=== PATIENT | female | born 1995 | race Caucasian/White ===

== ENCOUNTER 2021-11-29 15:26 | Outpatient (CLI) | payer OTHER | END 2021-11-29 15:33 | disposition home or self-care (01) | LOC: LAB 15:26 | PROVIDERS: ATTEND Preventive Medicine Occupational Medicine | DX: U07.1 COVID-19 (principal) ==

== ENCOUNTER 2021-12-13 08:00 | Outpatient (CLI) | payer OTHER | END 2021-12-13 08:05 | disposition home or self-care (01) | LOC: PPH VACUNA 08:00 | PROVIDERS: ATTEND Emergency Medicine Pediatric Emergency Medicine | DX: Z23 Encounter for immunization (principal) ==

== ENCOUNTER 2022-07-07 10:39 | Emergency (ER) | payer OTHER ==
[~2022-07-07] VITALS: Ht 167.6 cm; Wt 95.3 kg
== END 2022-07-07 14:22 | disposition home or self-care (01) ==
LOC: ER 10:39
DX: B34.9 Viral infection, unspecified (principal); Z20.822 Contact with and (suspected) exposure to COVID-19

== ENCOUNTER 2023-12-19 20:33 | Emergency (ER) | payer OTHER ==
[~2023-12-19] VITALS: Ht 167.6 cm; Wt 96.6 kg
[2023-12-19] MEDS ORDERED: ELVITEG/COB/EMTRI/TENOFO DISOP 1 UDTAB TABLET PO ONE (20:45)
== END 2023-12-19 20:46 | disposition home or self-care (01) ==
LOC: ER 20:33
DX: R53.81 Other malaise (principal); R78.81 Bacteremia

== ENCOUNTER 2024-10-15 13:36 | Outpatient (CLI) | payer OTHER | END 2024-10-15 13:43 | disposition home or self-care (01) | LOC: MRI 13:36 | PROVIDERS: ATTEND Internal Medicine | DX: G93.0 Cerebral cysts (principal); R51.9 Headache, unspecified | CPT/HCPCS: 70551 ==

== ENCOUNTER → 2024-11-17 11:19 | Outpatient (CLI) | payer OTHER ==
[2024-11-17 10:33] LABS: BASO % 0.7 % (0.1-1.2); EOS # 0.04 (0.04-0.54); EOS % 0.6 % (0.7-7.0); LYMPH # 1.78 (1.18-3.74); LYMPH % 24.6 % (19.3-53.1); MEAN PLATELET VOLUME 10.90 fl (9.4-12.4); MONO # 0.50 (0.24-0.82); MONO % 6.9 % (4.7-12.5); NEUT # 4.86 (1.56-6.13); NEUT % 66.9 % (34.0-71.1); RED CELL DISTRIBUTION WIDTH 14.0 % (11.6-14.4)
[2024-11-17 11:01] LABS: GAMMA GLUTAMIL TRANSFERASE 10.0 U/L (5-55)
[2024-11-17 11:05] LABS: ALT/SGPT 12.0 U/L (12-78); AST/SGOT 7.0 U/L (15-37); BILIRUBIN TOTAL 1.14 mg/dL (0.3-1.2); BUN CREA RATIO 20.0 (7.0-25.0); CHOL HDL RATIO 2.6 (0-5.0); CREATININE SERUM 0.7 mg/dL (0.55-1.02); FREE TRIODOTIRONINE 2.27 pg/ml (2.18-3.98); GFR 99.64; GLOBULINA 3.5 G/DL (2.4-3.5); GLUCOSE FASTING 73.0 mg/dL (65-100); HDL 46.0 mg/dl (40-60); LDL 58.0 mg/dl (0-130); OSMOLALITY SERUM 280.0 MOSM/KG (275-295); T4 TOTAL 7.54 UG/DL (4.8-13.9); TSH 1.09 uIU/mL (0.358-3.74); VLDL 17.0 (0-39)
[2024-11-18 09:11] LABS: INSULIN LEVELS 13.8 uIU/mL (2.6-24.9)
[2024-11-18 16:30] LABS: URINE APPEARANCE Clear; URINE BILIRRUBIN Negative (NEGATIVE); URINE BLOOD Large; URINE COLOR Yellow; URINE GLUCOSE Negative (NEGATIVE); URINE KETONE Trace (NEGATIVE); URINE LEUKOCYTE Negative; URINE NITRATE Negative; URINE PROTEIN Negative (NEGATIVE); URINE UROBILINOGEN 1.0 E.U./dl
[2024-11-18 16:31] LABS: URINE BACTERIA 22.7 uL (0.0-1933); URINE EPITHELIAL CELLS 8.5 uL (0.0-38.8); URINE RBC 156.1 uL (0.0-20.8); URINE WBC 2.4 uL (0.0-23.2)
[2024-11-18 16:34] LABS: URINE CAST 0.14 uL (0.0-1.40)
== END | disposition home or self-care (01) ==
LOC: LAB 11-09 16:52
PROVIDERS: ATTEND Internal Medicine
DX: E55.9 Vitamin D deficiency, unspecified (principal); Z00.00 Encounter for general adult medical examination without abnormal findings; Z13.1 Encounter for screening for diabetes mellitus; Z13.220 Encounter for screening for lipoid disorders; Z13.29 Encounter for screening for other suspected endocrine disorder; N39.0 Urinary tract infection, site not specified; R74.8 Abnormal levels of other serum enzymes; R10.13 Epigastric pain

== ENCOUNTER 2024-11-23 13:40 | Emergency (ER) | payer OTHER ==
[~2024-11-23] VITALS: Ht 167.6 cm; Wt 90.3 kg
[2024-11-23 14:28] LABS: BASO % 0.6 % (0.1-1.2); EOS # 0.03 (0.04-0.54); EOS % 0.3 % (0.7-7.0); LYMPH # 1.74 (1.18-3.74); LYMPH % 18.6 % (19.3-53.1); MEAN PLATELET VOLUME 10.60 fl (9.4-12.4); MONO # 0.81 (0.24-0.82); MONO % 8.6 % (4.7-12.5); NEUT # 6.73 (1.56-6.13); NEUT % 71.8 % (34.0-71.1); RED CELL DISTRIBUTION WIDTH 14.0 % (11.6-14.4)
[2024-11-23] MEDS ORDERED: CETIRIZINE HCL 5MG/5ML BLIST.PACK PO ONE (14:39)
[2024-11-23] MEDS ORDERED: ACETAMINOPHEN 500 MG GEL..CAP PO ONE (14:40)
[2024-11-23 14:42] LABS: COVID-19 AG NEGATIVE (NEGATIVE)
[2024-11-23] MEDS ORDERED: CETIRIZINE HCL 5 MG/5 ML ML PO ONE (14:45)
[2024-11-23] MEDS ORDERED: ZYRTEC10 MG PO (14:53)
[2024-11-23] MEDS ORDERED: XOPENEX CO1.25 MG/0. IH (14:53)
[2024-11-23] MEDS ORDERED: TUSSIN DM LIQU118 ML PO (14:53)
[2024-11-23] MEDS ORDERED: ZITHROMAX500 MG PO (14:53)
[2024-11-23] MEDS ORDERED: IPRATROPIU0.2 MG/1 M IH (14:53)
== END 2024-11-23 15:17 | disposition home or self-care (01) ==
LOC: ER 13:40
PROVIDERS: Emergency Medicine
DX: J06.9 Acute upper respiratory infection, unspecified (principal); J00 Acute nasopharyngitis [common cold]; Z20.822 Contact with and (suspected) exposure to COVID-19